=== PATIENT | female | born 1975 | race Hispanic/Latino ===

== ENCOUNTER 2020-04-01 10:49 | Emergency (ER) | payer BC, SELFPAY ==
--- NOTE | 2020-04-01 11:02 | ED.URI ---
HPI - URI/Sore Throat General Chief Complaint: Upper Respiratory Infection Stated Complaint: sore throat Time Seen by Provider: 04/01/20 11:00 Source: patient Mode of arrival: ambulatory Limitations: no limitations History of Present Illness HPI Narrative: The patient is a 44 yo female who presents for evaluation of sore throat. She describes that she has a ball in her throat. It has been difficult for her to swallow and painful at times. She has tried using throat lozenges without improvement in her symptoms. No recent sick contacts. She denies fever or cough, but she is reporting an ear ache in the right ear and rhinorrhea. Pt seen here a year go and diagnosed with pharyngitis. Related Data Allergies Allergy/AdvReac Type Severity Reaction Status Date / Time No Known Allergies Allergy Unverified 10/18/19 10:56 Review of Systems Review of Systems: Narrative: CONSTITUTIONAL: Denies fever, chills, or sweats. EYES: Denies visual changes, redness, or discharge. ENT: Reports rhinorrhea, congestion, right ear pain CARDIOVASCULAR: Denies chest pain, palpitations, or edema. RESPIRATORY: Denies cough or dyspnea. GASTROINTESTINAL: Denies abdominal pain, nausea, vomiting, or diarrhea. GENITOURINARY: Denies dysuria or hematuria. SKIN: Denies rash or itching. MUSCULOSKELETAL: Denies back pain NEUROLOGIC: Denies headache PMFSH Past Medical History Medical History Benign essential HTN Compensated hypothyroidism Morbid obesity Family History Family History Other Family history of thyroid disease Social History Social History Smoking status: Light tobacco smoker Alcohol intake: current Substance use type: marijuana Exam Narrative: Exam Narrative: GENERAL: Awake, alert, conversant HEAD: Normocephalic, atraumatic. EYES: PERRLA and EOMI. ENT: Nares clear, no rhinorrhea or epistaxis. Mucous membranes moist. Uvula is midline. Bilateral palatine tonsillar edema without exudate. No petechiae. No trismus. No evidence of [employer] NECK: Bilateral cervical lymphadenopathy, anterior. CHEST: No respiratory distress, breathing even and non labored HEART: Regular rate, sinus rhythm ABDOMEN:Non distended, non tender EXTREMITIES: Normal range of motion. No edema. SKIN: Warm, dry, no rash. NEURO:No focal deficits. Alert and oriented x3 Course Vital Signs Vital signs: Vital Signs Temperature 36.8 C 04/01/20 11:04 Pulse Rate 80 04/01/20 11:04 Respiratory Rate 20 04/01/20 11:04 Blood Pressure 149/112 H 04/01/20 11:04 Pulse Oximetry 96 04/01/20 11:04 Temperature 36.8 C 04/01/20 11:04 Pulse Rate 80 04/01/20 11:04 Respiratory Rate 20 04/01/20 11:04 Blood Pressure 149/112 H 04/01/20 11:04 Pulse Oximetry 96 04/01/20 11:04 MDM - URI/Sore Throat MDM Narrative Medical decision making narrative: Patient presented for evaluation of sore throat. At the time of assessment, ABCs are intact and vital signs are stable. Airway is patent. On exam there is bilateral tonsillar erythema, edema without exudate, uvula is midline and there is no trismus. There is no sign of a space-occupying lesion. Patient has no respiratory distress. Patient is tolerating her secretions. Patient with a positive strep swab in the emergency department. Will be treated for bacterial strep pharyngitis. Was discharged home and given close return precautions. Differential Diagnosis Differential diagnosis: Likely upper respiratory infection, sinusitis, viral infection, bronchitis and pharyngitis Medical Records Attestation: I reviewed the patient's medical records. Lab Data Labs: Strep Screen Positive Group A Strep *(Reference Range: Negative)* Discharge Plan Discharge Clinical Impression: Acute streptoco
[2020-04-01 11:04] VITALS: BP 149/112; PULSE 80; RESP 20; TEMP 36.8; O2SAT 96
[2020-04-01 11:37] VITALS: BP 149/76; PULSE 85; RESP 19; O2SAT 98
== END 2020-04-01 11:38 | disposition home or self-care (01) ==
PROVIDERS: Emergency Provider Emergency Medicine; PCP Family Medicine
DX: J02.0 Streptococcal pharyngitis (principal); I10 Essential (primary) hypertension; E66.01 Morbid (severe) obesity due to excess calories; Z68.43 Body mass index [BMI] 50.0-59.9, adult; F17.200 Nicotine dependence, unspecified, uncomplicated; E03.9 Hypothyroidism, unspecified
CPT/HCPCS: 87880; 99283

== ENCOUNTER 2020-08-07 09:20 | Outpatient (CLI) | payer BC, SELFPAY ==
--- NOTE | ~2020-08-07 | MM_ITS ---
EXAMINATION: MM screening shanda BI w alex HISTORY: Screening mammogram TECHNIQUE: Craniocaudal and mediolateral oblique 3-D tomosynthesis images were obtained and synthetic 2-D images were generated. CAD analysis was submitted and interpreted. COMPARISON: No prior mammogram is available for comparison at this institution. BREAST PARENCHYMAL COMPOSITION: There are scattered areas of fibroglandular density. FINDINGS: RIGHT BREAST: There is no evidence of suspicious mass, calcification, or architectural distortion to suggest malignancy. LEFT BREAST: An asymmetry is present in the middle third of the slightly upper breast on the mediolat eral oblique view. IMPRESSION: 1. Left breast asymmetry on the mediolateral oblique view which may represent the patient's baseline however no comparison is currently available. 2. Comparison with prior mammograms is necessary. BI-RADS Category 0: Incomplete: Needs comparison with prior mammograms. Reviewed, dictated and finalized at location A. IMPRESSION: 1. Left breast asymmetry on the mediolateral oblique view which may represent t he patient's baseline however no comparison is currently available. 2. Comparison with prior mammograms is necessary. BI-RADS Category 0: Incomplete: Needs comparison with prior mammograms.
== END 2020-08-07 09:21 | disposition home or self-care (01) ==
PROVIDERS: PCP Family Medicine; Visit Provider Physician Assistant
DX: Z12.31 Encounter for screening mammogram for malignant neoplasm of breast (principal); R92.8 Other abnormal and inconclusive findings on diagnostic imaging of breast
CPT/HCPCS: 77063; 77067

== ENCOUNTER 2020-11-13 12:25 | Outpatient (CLI) | payer BC, SELFPAY ==
--- NOTE | ~2020-11-13 | MMUS_ITS ---
EXAMINATION: MM diagnostic mammo unilat LT, US breast LT limited HISTORY: Left mammographic asymmetry reported on screening MLO view of 08/07/2020 TECHNIQUE: Additional 3-D tomosynthesis images of the left breast were performed and synthetic 2-D im ages were generated. CAD analysis was submitted and interpreted. High resolution upper inner and uppe r outer left breast ultrasound was performed. COMPARISON: 08/07/2020 bilateral digital screening mammogram BREAST PARENCHYMAL COMPOSITION: There are scattered areas of fibroglandular density. FINDINGS: MAMMOGRAPHIC FINDINGS: No suspicious mass, architectural distortion, malignant calcification, skin thickening or retraction is detected. ULTRASOUND: No suspicious mass or shadowing, cyst or other significant sonographic finding is noted in the upper half of the left breast. IMPRESSION: 1. No mammographic evidence of malignancy 2. Routine mammographic screening is recommended. BI-RADS Category 1: Negative Reviewed, dictated and finalized at location A. IMPRESSION: 1. No mammographic evidence of malignancy 2. Routine mammographic screening is recommended. BI-RADS Category 1: Negative
== END 2020-11-13 12:26 | disposition home or self-care (01) ==
PROVIDERS: PCP Family Medicine; Visit Provider Physician Assistant
DX: R92.8 Other abnormal and inconclusive findings on diagnostic imaging of breast (principal)
CPT/HCPCS: 76642; 77065

== ENCOUNTER → 2021-01-06 04:18 | Outpatient (CLI) | payer BC, SELFPAY ==
[2021-01-06 18:19] LABS: SARS-CoV-2 RNA PCR Negative
== END ==
PROVIDERS: PCP Family Medicine; Visit Provider Family Medicine
DX: R68.89 Other general symptoms and signs (principal); Z20.822 Contact with and (suspected) exposure to COVID-19
CPT/HCPCS: C9803; U0003; U0005

== ENCOUNTER → 2021-04-23 09:20 | Outpatient (CLI) | payer BC, SELFPAY ==
[2021-04-23 20:56] LABS: SARS-CoV-2 RNA PCR Negative
== END ==
PROVIDERS: PCP Family Medicine; Visit Provider Nurse Practitioner Gerontology
DX: Z20.822 Contact with and (suspected) exposure to COVID-19 (principal)
CPT/HCPCS: C9803; U0003; U0005

== ENCOUNTER → 2021-05-11 10:32 | Outpatient (CLI) | payer BC, SELFPAY ==
[2021-05-11 19:02] LABS: SARS-CoV-2 RNA PCR Positive
== END ==
PROVIDERS: PCP Family Medicine; Visit Provider Nurse Practitioner Gerontology
DX: U07.1 COVID-19 (principal)
CPT/HCPCS: C9803; U0003; U0005

== ENCOUNTER 2022-01-29 10:56 | Outpatient (CLI) | payer BC, SELFPAY ==
--- NOTE | ~2022-01-29 | US_ITS ---
EXAMINATION: US pelvic complete DATE: 01/29/2022 12:30 INDICATION: Irregular periods. History of fibroids. Comparison:No prior studies for comparison. TECHNIQUE: Multiple transabdominal sonographic images of the pelvis performed. FINDINGS: The uterus measures 8.1 x 3.6 x 3 cm. The endometrial complex measures 3 mm. The right ovary measures 2 x 1.9 x 1.2 cm and the left ovary measures 2.2 x 1.7 x 1.5 cm. There are small follicles in each ovary. Normal doppler signal in both ovaries. There is no free fluid in the pelvis. There are no abnormal masses seen on either side. IMPRESSION: 1. Unremarkable pelvic ultrasound. Reviewed, dictated and finalized at location A.
== END 2022-01-29 10:57 | disposition home or self-care (01) ==
PROVIDERS: PCP Family Medicine; Visit Provider Family Medicine
DX: N92.1 Excessive and frequent menstruation with irregular cycle (principal)
CPT/HCPCS: 76856

== ENCOUNTER 2022-10-26 15:13 | Emergency (ER) | payer BC, SELFPAY ==
--- NOTE | ~2022-10-26 | CT_ITS ---
EXAMINATION: CT abdomen pelvis w con DATE: 10/26/2022 20:04 INDICATION: Right abdominal pain. TECHNIQUE: Computed tomography (CT) of the abdomen and pelvis was performed with 100 mL Omnipaque 350 intravenous contrast. Automated exposure control and iterative reconstruction technique were employe d. The dose-length product was 1504.61 mGy-cm. COMPARISON: None. FINDINGS: The visualized portions of the lung bases demonstrate minimal atelectasis. No pleural effus ion. The heart size is normal. No pericardial effusion. The liver and spleen are normal. There are ch anges of cholecystectomy. The pancreas, adrenal glands, and kidneys are normal. There are no dilated loops of bowel. The appendix is normal. There are no pathologically enlarged lymph nodes. There is no free intraperitoneal fluid. There is mild thoracic spondylosis and moderate lumbar spondylosis. IMPRESSION: 1. No etiology for the patient's symptoms. Reviewed, dictated and finalized at location E.
[2022-10-26 15:49] VITALS: BP 156/83; PULSE 57; RESP 18; TEMP 37.1; O2SAT 100
[2022-10-26 16:15] LABS: Basophils Percent Auto 0.4 % (0.2-1.2); Eosinophils Absolute Auto 0.1 K/mm3 (0-0.3); Eosinophils Percent Auto 1.3 % (0-4.4); Hematocrit 37.8 % (37.0-47.0); Hemoglobin 11.9 g/dL (12.0-15.0); Immature Granulocyte Absolute 0.02 K/mm3 (0.00-0.031); Immature Granulocyte Percent A 0.3 % (0-0.5); Lymphocytes Absolute Auto 1.64 K/mm3 (0.9-3.2); Lymphocytes Percent Auto 23.2 % (18.3-44.2); Mean Corpuscular HGB Conc 31.5 g/dl (32-36); Mean Corpuscular Hemoglobin 26.4 pg (26-34); Mean Corpuscular Volume 83.8 fl (80-100); Mean Platelet Volume 10.4 fl (7.4-10.4); Monocytes Absolute Auto 0.3 K/mm3 (0.1-0.6); Monocytes Percent Auto 4.8 % (2.6-8.5); Neutrophils Absolute Auto 4.9 K/mm3 (1.3-6.7); Platelet Count Result 259 k/mm3 (150-375); Red Blood Count 4.51 M/mm3 (4.2-5.4); Red Cell Distribution Width 13.3 % (11.5-14.5); White Blood Count 7.1 K/mm3 (4.5-10.0)
[2022-10-26 16:27] LABS: Alanine Aminotransferase 20 U/L (6-35); Albumin Level 4.3 g/dL (3.5-5.1); Alkaline Phosphatase 108 U/L (38-126); Anion Gap 4 mmol/L (8-16); Aspartate Amino Transferase 26 U/L (14-36); Bilirubin,Total 0.7 mg/dL (0.2-1.3); Blood Urea Nitrogen 11 mg/dL (7-17); Calcium 8.8 mg/dL (8.4-10.2); Carbon Dioxide 30 mmol/L (22-30); Chloride 103 mmol/L (98-107); Estimated CRCL calculation 112 ml/min; Estimated Glomerular Filt Rate > 60; Glucose 93 mg/dL (65-110); Lipase 45 U/L (23-300); Potassium 3.8 mmol/L (3.4-5.0); Sodium 137 mmol/L (137-145)
[2022-10-26 16:29] LABS: Appearance Urine Clear (Clear); Bacteria Urine 1+ /hpf; Bilirubin Urine Negative (Negative); Blood Urine Negative (Negative); Color Urine Yellow (Yellow); Glucose Urine UA Negative (Negative); Ketones Urine Negative (Negative); Leukocyte Esterase Ur Trace LEU/UL (Negative); Nitrate Urine Negative (Negative); Non Pathogenic Casts 0-2; Protein Urine Negative (Negative); RBC Urine 0-2 /hpf (0-2); Specific Grav Ur 1.016 (1.001-1.035); Squamous Epithelial Cell Urine Occasional /hpf (Few); Urobilinogen Urine 0.2 mg/dL (<2.0)
[2022-10-26 16:34] LABS: Add Urine Microscopic? YES
[2022-10-26 19:21] VITALS: BP 156/102; PULSE 66; RESP 14; O2SAT 100
[2022-10-26] MEDS: ACETAMINOPHEN 500 MG TABLET 1000 MG PO (19:40)
[2022-10-26] MEDS: IBUPROFEN 400 MG TABLET 800 MG PO (19:40)
[2022-10-26] MEDS: methocarbamoL 750 MG TABLET 1500 MG PO (19:40)
--- NOTE | 2022-10-26 19:59 | ED.GENADULT ---
HPI - General Adult General Chief complaint: Abdominal Pain Stated complaint: flank pain, hip pain Time Seen by Provider: 10/26/22 19:09 History of Present Illness HPI narrative: This is a 47-year-old female presenting to ED with right-sided abdominal pain. Patient says she has been having pain like this on and off for several months but over the last 2 days it has gotten acutely worse. She describes it as a discomfort that is nonradiating to out 10 intensity and comes and goes. It is worse in the morning and worse when she is moving. There are no alleviating factors. She has no other associated symptoms such as fever chills nausea vomiting diarrhea chest pain or shortness of breath urinary symptoms. Related Data Allergies Allergy/AdvReac Type Severity Reaction Status Date / Time No Known Allergies Allergy Verified 10/26/22 15:14 [facility] Past Medical History Medical History Benign essential HTN Compensated hypothyroidism Hypothyroidism Morbid obesity Smoker Surgical History Surgical History History of cholecystectomy Family History Family History Other Diabetes mellitus Family history of thyroid disease Hypertension Social History Social History (Updated 09/27/22 @ 10:03 by Radha Cabrera) Social History: Single Smoking packs per day: 0.25 Smoking cigarettes per day: 5.0 Years smoked: 20 Smoking pack-years: 5.00 Smoking status: Current every day smoker Tobacco type: cigarettes Second hand tobacco smoke exposure: Yes Alcohol intake: current Alcohol use details: Rarely Substance use: current Substance use type: marijuana Lack of Transportation: No Lack of Food: Never True Current Housing: I Have Housing Concerned About Future Housing: No Difficulty Paying Gas/Electric Bills: No Difficulty Paying for Meds: No Currently Unemployed: No Education: Decline to Answer Difficulty w/ Childcare or Family Care: No Living arrangements: with family Occupation/Education: occupation Gender identity (if verbalized by the patient): Female Sexual Orientation (if Verbalized by the Patient): Straight or Heterosexual Exam Narrative: APPEARANCE: No apparent distress. Pleasant polite in the interview Head: atraumatic. EYES: EOMI, NOSE: Atraumatic NECK /back: no midline tenderness or tenderness in the paraspinal muscles. RESPIRATORY: No increased rate of breathing , CTAB CARDIOVASCULAR: RRR, ABDOMINAL: obese, but no focal tenderness guarding or rebound, no CVA tenderness, \ MUSCULOSKELETAl: No obvious deformities NEURO: Alert. Moving 4/4 extremities SKIN:: Warm, dry. Normal color PSYCHIATRIC: Normal affect Course Vital Signs Vital signs: Vital Signs Temperature 98.7 F 10/26/22 15:49 Pulse Rate 57 L 10/26/22 15:49 Respiratory Rate 18 10/26/22 15:49 Blood Pressure 156/83 H 10/26/22 15:49 Pulse Oximetry 100 10/26/22 15:49 Oxygen Delivery Room Air 10/26/22 15:49 Temperature 98.7 F 10/26/22 15:49 Pulse Rate 66 10/26/22 19:21 Respiratory Rate 14 10/26/22 19:21 Blood Pressure 156/102 H 10/26/22 19:21 Pulse Oximetry 100 10/26/22 19:21 Oxygen Delivery Room Air 10/26/22 15:49 Medical Decision Making MDM Narrative Medical decision making narrative: -Presentation: 47-year-old female presenting with right-sided abdominal pain. 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 Metabolic panel unremarkable. Urine shows 6-10 white blood cells, tra
[2022-10-26 20:43] LABS: Pregnancy On Board Control Positive; Urine Pregnancy Test Negative
[2022-10-26 21:10] VITALS: BP 121/71; PULSE 50; RESP 14; O2SAT 99
== END 2022-10-26 21:10 | disposition home or self-care (01) ==
PROVIDERS: Preventive Medicine Aerospace Medicine; Emergency Provider Emergency Medicine; PCP Family Medicine
DX: R10.9 Unspecified abdominal pain (principal); F17.210 Nicotine dependence, cigarettes, uncomplicated; I10 Essential (primary) hypertension; E03.9 Hypothyroidism, unspecified
CPT/HCPCS: 36415; 74177; 80053; 81001; 81025; 83690; 85025; 87086; 87088; 99284; A9270; Q9967

== ENCOUNTER 2023-01-20 09:12 | Outpatient (CLI) | payer BC, SELFPAY ==
--- NOTE | 2023-01-20 09:21 | EST_ITS ---
Patient Info Name: Dianne Finley Age: 47 years : 1975 Gender: Female Ht: 65 in Wt: 326 lbs BSA: 2.70 m2 HR: 67 bpm BP: 121 / 68 mmHg Heart Rhythm: Sinus Rhythm Exam Date: 01/20/2023 10:01 AM Exam Location: [facility] Patient Status: Outpatient Admit Date: 01/20/2023 Staff Ordering Physician: Kirsty Doherty PA-C Attending Provider: Kirsty Doherty PA-C Exercise Technologist: Ingrid Velásquez CT Exercise Physician: Nolan Norman DO Exam Type: CA stress test treadmill Study Info Indications R07.89 - Other chest pain A treadmill exercise stress test was performed. Summary 1. 1. Negative Ned exercise stress test for ischemic ST changes by ECG criteria. 2. 2. Reduced functional capacity, achieving 7 METs of workload. 3. 3. Hypertensive response to exercise. 4. 4. Appropriate HR response to exercise. 5. 5. Appropriate HR recovery at 1 minute post exercise. 6. 6. No imaging with stress testing. 7. 7. Patient informed of the above results. Protocol: Ned Stress ECG Details Stage: REST Duration (min): 2 min : 31 sec Speed (mph): 0.0 Grade (%): 0 HR (bpm): 71 SBP (mmHg): 121 DBP (mmHg): 68 METS: --- Stage: REST Duration (min): 17 min : 9 sec Speed (mph): 0.0 Grade (%): 0 HR (bpm): 71 SBP (mmHg): 121 DBP (mmHg): 68 METS: --- Stage: STAGE 1 Duration (min): 1 min : 0 sec Speed (mph): 1.7 Grade (%): 10 HR (bpm): 100 SBP (mmHg): 121 DBP (mmHg): 68 METS: --- Stage: STAGE 1 Duration (min): 2 min : 0 sec Speed (mph): 1.7 Grade (%): 10 HR (bpm): 112 SBP (mmHg): 121 DBP (mmHg): 68 METS: --- Stage: STAGE 1 Duration (min): 3 min : 0 sec Speed (mph): 1.7 Grade (%): 10 HR (bpm): 114 SBP (mmHg): 121 DBP (mmHg): 68 METS: --- Stage: STAGE 2 Duration (min): 1 min : 0 sec Speed (mph): 2.5 Grade (%): 12 HR (bpm): 128 SBP (mmHg): 184 DBP (mmHg): 59 METS: --- Stage: STAGE 2 Duration (min): 2 min : 0 sec Speed (mph): 2.5 Grade (%): 12 HR (bpm): 136 SBP (mmHg): 184 DBP (mmHg): 59 METS: --- Stage: STAGE 2 Duration (min): 3 min : 0 sec Speed (mph): 2.5 Grade (%): 12 HR (bpm): 143 SBP (mmHg): 184 DBP (mmHg): 59 METS: --- Stage: STAGE 3 Duration (min): 0 min : 19 sec Speed (mph): 3.4 Grade (%): 14 HR (bpm): 149 SBP (mmHg): 184 DBP (mmHg): 59 METS: --- Stage: RECOVERY Duration (min): 0 min : 40 sec Speed (mph): 0.0 Grade (%): 0 HR (bpm): 131 SBP (mmHg): 184 DBP (mmHg): 59 METS: --- Stage: RECOVERY Duration (min): 1 min : 40 sec Speed (mph): 0.0 Grade (%): 0 HR (bpm): 107 SBP (mmHg): 231 DBP (mmHg): 70 METS: --- Stage: RECOVERY Duration (min): 2 min : 40 sec Speed (mph): 0.0 Grade (%): 0 HR (bpm): 95 SBP (mmHg): 244 DBP (mmHg): 68 METS: --- Stage: RECOVERY Duration (min): 3 min : 31 sec Speed (mph): 0.0 Grade (%): 0 HR (b
== END 2023-01-20 09:13 | disposition home or self-care (01) ==
LOC: ANHCARD 09:13
PROVIDERS: PCP Family Medicine; Visit Provider Physician Assistant
DX: R07.9 Chest pain, unspecified (principal)
CPT/HCPCS: 93017

== ENCOUNTER 2023-09-20 14:20 | Outpatient (CLI) | payer BC, SELFPAY ==
--- NOTE | ~2023-09-20 | US_ITS ---
US thyroid INDICATION: Nontoxic thyroid goiter TECHNIQUE: Real-time sonographic images of the thyroid gland were obtained. COMPARISON: No prior studies for comparison. FINDINGS: The right thyroid lobe measures 5.1 x 1.7 x 2.2 cm. The left thyroid lobe measures 5 x 1.4 x 1.9 cm. Thyroid gland is heterogeneous. There is a slightly hyperechoic mass in the right lobe matteo suring 2.3 x 1.3 x 2.3 cm which is solid, wider than tall, smoothly marginated without echogenic foci , TR 3. There is a lymph node in the right neck with normal fatty hilum measuring 1.4 x 0.4 x 0.8 cm. Isthmus is normal measuring 2 mm. Left thyroid lobe is heterogeneous without discrete mass. Normal v ascular flow is present. IMPRESSION: 1. Right thyroid mass measuring 2.3 cm, TR 3, mildly suspicious. Recommend follow-up ultrasound in 6 -12 months. Reviewed, dictated and finalized at location B. IMPRESSION: 1. Right thyroid mass measuring 2.3 cm, TR 3, mildly suspicious. Recommend fol low-up ultrasound in 6-12 months.
== END 2023-09-20 14:21 | disposition home or self-care (01) ==
PROVIDERS: PCP Family Medicine; Visit Provider Physician Assistant
DX: E04.9 Nontoxic goiter, unspecified (principal)
CPT/HCPCS: 76536

== ENCOUNTER 2023-11-10 09:08 | Outpatient (CLI) | payer BC, SELFPAY ==
--- NOTE | ~2023-11-10 | XR_ITS ---
3 VIEWS LUMBAR SPINE Ordering provider: Elva Ray PA-C History: . no injury lbp for 3 days . Comparison: None. FINDINGS: VERTEBRAL BODIES:Anterior loss of volume of L4 most likely chronic. No visible fracture or subluxati on. Degenerative changes of the spine. DISK SPACES: Narrowing of the disc space L5-S1. SOFT TISSUES: Normal. IMPRESSION: No acute osseous abnormality lumbar spine. Reviewed, dictated and finalized at location A.
== END 2023-11-10 09:09 ==
LOC: MICIMG 09:10
PROVIDERS: PCP Family Medicine; Visit Provider Student in an Organized Health Care Education/Training Program
DX: M54.50 Low back pain, unspecified (principal)
CPT/HCPCS: 72100

== ENCOUNTER 2024-01-19 15:02 | Outpatient (CLI) | payer BC, SELFPAY ==
--- NOTE | ~2024-01-19 | XR_ITS ---
XR chest 2V Ordering provider: Abiola Nickerson MD History: 48 years Female with . R07.89 - Other chest pain . Comparison: None. FINDINGS: MEDIASTINUM: The cardiac silhouette is not enlarged. LUNGS: No infiltrates, effusions or pneumothorax. OTHER: No free air under the diaphragm. Degenerative changes of the spine. IMPRESSION: No acute cardiopulmonary pathology. Reviewed, dictated and finalized at location A.
--- NOTE | ~2024-01-19 | XR_ITS ---
XR abdomen obstructive series Ordering provider: Abiola Nickerson MD History: . R14.0 - Abdominal distension (gaseous) . Comparison: None. FINDINGS: BOWEL: Nonobstructive bowel gas pattern. ORGANOMEGALY: None. SIGNIFICANT PATHOLOGIC CALCIFICATIONS: None. OTHER: No free air is seen under the diaphragm. Degenerative spine. IMPRESSION: NO ACUTE ABDOMINAL FINDINGS. Reviewed, dictated and finalized at location A.
== END 2024-01-19 15:03 | disposition home or self-care (01) ==
LOC: ANHIMG 15:04
PROVIDERS: PCP Family Medicine; Visit Provider Family Medicine
DX: R07.89 Other chest pain (principal); R14.0 Abdominal distension (gaseous)
CPT/HCPCS: 71046; 74019

== ENCOUNTER 2024-03-26 15:00 | Outpatient (CLI) | payer BC, SELFPAY ==
--- NOTE | ~2024-03-26 | US_ITS ---
EXAMINATION: US thyroid DATE: 03/26/2024 15:39 INDICATION: Disorder of thyroid TECHNIQUE: Multiple ultrasound images of the thyroid were obtained. COMPARISON: 09/20/2023 FINDINGS: The right thyroid lobe measures 4.9 x 1.7 x 2.1 cm. The left thyroid lobe measures 4.8 x 1.3 x 1.5 c m. No significant change in a 2.2 cm solid wider than tall isoechoic nodule with smooth to ill-define d margins and without echogenic foci superior right thyroid lobe (TI-RADS 3, mildly suspicious , FNA if >=2.5 cm, annual followup is >=1.5 cm). There is diffuse heterogeneously decreased echogenicity an d coarsened echotexture throughout the remainder of the thyroid. IMPRESSION: 1. No interval change in a 2.2 cm TI-RADS 3 right thyroid nodule for which annual ultrasound follow-u p would be recommended. Reviewed, dictated and finalized at location A. [employer] IMPRESSION: 1. No interval change in a 2.2 cm TI-RADS 3 right thyroid nodule for which becky al ultrasound follow-up would be recommended.
== END 2024-03-26 15:01 | disposition home or self-care (01) ==
PROVIDERS: PCP Family Medicine; Visit Provider Student in an Organized Health Care Education/Training Program
DX: E07.9 Disorder of thyroid, unspecified (principal)
CPT/HCPCS: 76536

== ENCOUNTER 2024-07-19 08:09 | Outpatient (CLI) | payer BC, SELFPAY ==
--- NOTE | ~2024-07-19 | XR_ITS ---
Left Knee Technique: AP, lateral, and sunrise views were obtained. Clinical History: Pain Findings: No fracture or dislocation is seen. Osseous alignment is anatomic. Moderate tricompartmenta l degenerative joint disease is present. Soft tissues are unremarkable. No joint effusion is seen. Impression: Moderate tricompartmental degenerative joint disease. Reviewed, dictated and finalized at location . Impression: Moderate tricompartmental degenerative joint disease.
== END 2024-07-19 08:10 | disposition home or self-care (01) ==
PROVIDERS: PCP Physician Assistant; Visit Provider Physician Assistant
DX: M17.12 Unilateral primary osteoarthritis, left knee (principal)
CPT/HCPCS: 73564

== ENCOUNTER 2024-08-31 08:15 | Outpatient (RCR) | payer BC, SELFPAY ==
--- NOTE | 2024-07-24 09:00 | OPREHPOC ---
Outpatient Therapy Plan of Care This is a Multidisciplinary Plan of Care that may contain components documented by all disciplines (PT, OT, and ST.) PT Problem 1 PT Problem #1 Knowledge Deficit PT Goal 1 Goal / Goal Update *independent with HEP Target Visit 8 PT Problem 2 PT Problem #2 Pain PT Goal 1 Goal / Goal Update * pain rating L knee of 7/10 at worst Target Visit 8 PT Goal 2 Goal / Goal Update * pt report walking tolerance of 25 minutes Target Visit 8 PT Problem 3 PT Problem #3 Impaired Range of Motion PT Goal 1 Goal / Goal Update * increase L knee active flexion in sitting to 100 ', to improve transfer sit/stand ability Target Visit 8 PT Problem 4 PT Problem #4 Impaired Strength PT Goal 1 Goal / Goal Update * increase strength of L hip and knee to 4+/5, to improve stability to knee joint Target Visit 8
--- NOTE | 2024-07-24 09:00 | PTOPEVAL1 ---
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; able to do all of her work and home tasks, with more pain; Reported Pain Level Pain Score Self Report Additional Pain Score Comments pain range in the past week: 5-10/10; cramps and numb in knee-posterior knee, calves and thighs increase pain: driving- varies from few minutes to 10 min start hurting, walking 15 minutes, stairs decrease pain: lie down and straighten knee, muscle relaxers-new script 3x/day, not sure if help or not not use heat/ice, instruct on PRN use 10-15 minutes; with sleeping- able to sleep through the night is better when first wake up in AM Assessment PT Clinical Summary Dianne has the diagnosis of L knee pain. She reports most pain with driving and walking. Her history includes L knee pain, with recent increase with more walking. Xray report states moderate changes/tricomopartmental degenerative disease. LE functional scale self rating of 45% limitation in activity level. With the evaluation: L knee active ROM is 0-90', with flexion increase pain; stands with bilateral patella with lateral tilt and L knee flexion and hip ER; decrease gross strength of L LE 4/5; no tenderness to touch over L knee- reports deep in knee. Skilled PT services are indicated for modalities to decrease pain; therapeutic exercises to increase strength of L hip and knee with education for HEP and pain control. Plan of Care Interventions Electrical Stimulation,Hot Pack/Cold Pack,Manual Therapy,Neuro Re-education,Patient/Caregiver Education,Therapeutic Activities,Therapeutic Exercise,Ultrasound,Other Other Interventions taping PT Services Indicated Yes Treatment Frequency and 1-2x/wk for 8 visits Duration These treatments will address the objective and functional deficits as defined above. The patient will be advanced safely and appropriately in order for the patient to progress towards his/her prior level of function. Additional exercises will be introduced and as well as a comprehensive home exercise program upon discharge, if needed, ?to ensure carryover of functional gains achieved in the clinic. This treatment plan has been reviewed and agreement upon by the patient.
--- NOTE | 2024-09-26 12:01 | PTOPDC ---
Assessment and note entered by Nyla Porras, PT Assessment Status Discharge - Pt Not Present ICD-10 Condition Codes (PT) Pain in left knee M25.562 Onset July 15, 2024 Subjective Information pt was not seen this date. Assessment PT Clinical Summary Dianne has received 5 PT sessions, from July 24 to August 31. She then stopped attending therapy. Discharge PT due to no longer attending. The goals were not addressed. Plan of Care PT Services Indicated No
== END 2024-09-27 09:20 | disposition home or self-care (01) ==
LOC: ANHPT 08:15
PROVIDERS: PCP Physician Assistant; Visit Provider Physician Assistant
DX: M25.562 Pain in left knee (principal); M25.362 Other instability, left knee
CPT/HCPCS: 97014; 97110; 97161; 97530; G0283